=== PATIENT | male | born 1965 | race American Indian/Alaskan Native ===

== ENCOUNTER 2021-01-08 21:13 | Emergency (ER) | payer SELFPAY ==
--- NOTE | 2021-01-08 22:19 | Emergency Department Report ---
ED General Adult HPI - General Chief complaint: High BP Stated complaint: HTN Time Seen by Provider: 01/08/21 21:59 Source: patient Mode of arrival: Ambulatory Limitations: No Limitations - History of Present Illness Initial comments: Chief complaint: My blood pressure is too high for detox HPI: This is a 55-year-old male with history of hypertension who presents with elevated blood pressure. His blood pressure at the detox center was 166/106. Patient stated that he had mild frontal headache. He had intermittent blurry vision. He has been without his medication amlodipine for over 5 months. He has a history of alcohol and cocaine dependence. Currently he is symptom-free. -: Gradual, days(s) (5 days of symptoms headache blurred vision) Location: head (Mild frontal headache) Consistency: now resolved Improves with: none Worsens with: none Associated Symptoms: other (Blurry vision) - Related Data Previous Rx's Medication Instructions Recorded Last Taken Type Valsartan 80 mg PO DAILY #90 tablet 01/08/21 Unknown Rx amLODIPine 10 mg PO DAILY #90 tab 01/08/21 Unknown Rx ED Review of Systems ROS: Stated complaint: HTN Other details as noted in HPI Comment: All other systems reviewed and negative Constitutional: denies: chills, fever, malaise Respiratory: denies: cough, shortness of breath Cardiovascular: denies: chest pain Gastrointestinal: denies: abdominal pain, nausea, vomiting Neurological: headache. denies: numbness, paresthesias ED Past Medical Hx - Past Medical History Previous Medical History?: Yes Hx Hypertension: Yes - Surgical History Past Surgical History?: No - Family History Family history: hypertension - Social History Smoking Status: Never Smoker Substance Use Type: Alcohol, Cocaine - Medications Home Medications: Home Medications Medication Instructions Recorded Confirmed Last Taken Type Valsartan 80 mg PO DAILY #90 tablet 01/08/21 Unknown Rx amLODIPine 10 mg PO DAILY #90 tab 01/08/21 Unknown Rx ED Physical Exam - General Limitations: No Limitations General appearance: alert, in no apparent distress, other (Appears healthy comfortable no acute distress) - Head Head exam: Present: atraumatic, normocephalic - Eye Eye exam: Present: normal appearance - ENT ENT exam: Present: mucous membranes moist - Neck Neck exam: Present: normal inspection - Respiratory Respiratory exam: Present: normal lung sounds bilaterally. Absent: respiratory distress - Cardiovascular Cardiovascular Exam: Present: regular rate, normal rhythm, normal heart sounds. Absent: systolic murmur, diastolic murmur, rubs, gallop - GI/Abdominal GI/Abdominal exam: Present: soft, normal bowel sounds. Absent: distended, tenderness, guarding, rebound - Rectal Rectal exam: Present: deferred - Extremities Exam Extremities exam: Present: normal inspection - Back Exam Back exam: Present: normal inspection - Neurological Exam Neurological exam: Present: alert, oriented X3 - Psychiatric Psychiatric exam: Present: normal affect, normal mood - Skin Skin exam: Present: warm, dry, intact, normal color. Absent: rash ED Course Vital Signs 01/08/21 21:38 Temperature 98.1 F Pulse Rate 102 H Respiratory 15 Rate Blood Pressure 160/106 [Left] O2 Sat by Pulse 98 Oximetry ED Medical Decision Making - Medical Decision Making Hypertensive urgency: Currently symptom-free. Patient appears well. No gross neurological deficits. Do not suspect TIA or endorgan damage. I have prescribed amlodipine 10 mg and valsartan. Critical care attestation.: If time is entered above; I have spent that time in minutes in the direct care of this critically ill patient, excluding procedure time. ED Disposition Clinical Impression: Hypertensive urgency Disposition: HOME / SELF CARE / HOMELESS Is pt being admited?: No Does the pt Need Aspirin: No Condition: Stable Instructions: Managing Your Hypertension Prescriptions: amLODIPine 10 mg PO DAILY #90 tab Valsartan 80 mg PO DAILY #90 tablet Referrals: MONO CASTANON MD [Staff Physician] - 3-5 Days
[2021-01-08 23:14] VITALS: BP 129/99
== END 2021-01-08 23:13 | disposition home or self-care (01) ==
LOC: ED 21:13
DX: I16.0 Hypertensive urgency (principal); R51.9 Headache, unspecified; H53.8 Other visual disturbances; F14.90 Cocaine use, unspecified, uncomplicated
CPT/HCPCS: 99282